=== PATIENT | female | born 1970 ===

== ENCOUNTER 2018-08-31 05:56 | Day surgery (SDC) | payer MEDICAID ==
[2018-08-31] MEDS ORDERED: KETAMINE HCL 100MG/1ML VIAL INJ ONE (05:57)
[2018-08-31] MEDS ORDERED: FENTANYL PF 100MCG/2ML VIAL IV ONE (05:57)
[2018-08-31] MEDS ORDERED: LIDOCAINE 2% MDV (20MG/ML) 20ML VIAL IV ONE (05:57)
[2018-08-31] MEDS ORDERED: PROPOFOL 10 MG/ML VIAL IV ONE (05:57)
--- NOTE | 2018-09-03 09:51 | Operative Note ---
DATE OF SURGERY: 08/31/2018 SURGEON: Leighton Adame MD OPERATION: 1. ESOPHAGOGASTRODUODENOSCOPY. 2. COLONOSCOPY. INDICATIONS: This is a 48-year-old female who has had history of gastroesophageal reflux disease and intermittent episodes of dysphagia who presented for both esophagogastroduodenoscopy and screening colonoscopy. She, however, has had occasional diarrhea. POSTOPERATIVE DIAGNOSES: 1. Moderate-size hiatal hernia. 2. Otherwise normal stomach and duodenum. 3. Normal colonic and terminal ileal mucosa with no neoplasm or ulcerative lesions. ANESTHESIA: Sedation is per Anesthesia. Pulse oximetry was monitored throughout the procedure to maintain O2 saturation of 90% or greater. Supplemental oxygen was administered via nasal cannula. Cardiac and vital signs were monitored throughout the duration of the procedure, and they were stable. The procedures of esophagogastroduodenoscopy and colonoscopy and risks and benefits of the procedures, including the risk of bleeding and perforation, among others, were explained to the patient who voiced understanding and agreed to have the procedures done. Physical examination was performed, and the patient was found stable for sedation. PROCEDURE: The patient was placed in the left lateral position. Sedation was initiated. A plastic bite block was inserted into the oral cavity. The Olympus [id number] gastroscope was introduced into the oral cavity and advanced to the proximal esophagus without difficulty. The esophageal mucosa was carefully examined upon introduction of the gastroscope. The proximal and mid and distal esophageal mucosa appeared normal. There was moderate-size hiatal hernia that was noted. The gastroscope was then advanced into the stomach, and surveillance of the stomach revealed normal gastric fundus, body, and antrum with no ulcers noted. The gastroscope was then advanced to the descending duodenum without difficulty. The duodenal bulb and descending duodenum appeared normal. The gastroscope was then withdrawn into the stomach and retroflexion was performed. The moderate-size hiatal hernia was noted. The gastroscope was then straightened and withdrawn while carefully examining the gastric and esophageal mucosa. No other lesions noted. Multiple mid esophageal biopsies were obtained to rule out eosinophilic esophagitis. A Faith dilator size 60-Kyr[place]z was then passed into the stomach with mild resistance. The Faith dilator was then withdrawn and the procedure was terminated. The patient tolerated procedure well without any immediate complications. The patient remained with stable vital signs and was repositioned for colonoscopy. A digital rectal exam was performed and showed some mild external hemorrhoids with no palpable rectal masses. An Olympus PCF-180AL colonoscope was then inserted into the rectum under direct visualization. It was advanced to the cecum without difficulty. The ileocecal valve and appendiceal orifice were identified and photographed. The colonic mucosa was carefully examined upon introduction of the colonoscope. There were no lesions noted. The ileocecal valve was intubated and terminal ileal mucosa was inspected for about 10 cm and it appeared normal. The colonoscope was then withdrawn while carefully examining the colonic mucosal surfaces. No lesions were noted. In the rectum, retroflexion was performed and grade 1 internal hemorrhoids were noted. Because of occasional diarrhea, random biopsies were obtained to rule out microscopic colitis. The colonoscope was then withdrawn and the procedure was terminated. The patient tolerated the procedure well without any immediate complications. The patient remained with stable vital signs and was transferred to the recovery room. RECOMMENDATIONS: 1. The patient should be on a high-fiber diet. 2. The patient is to have a repeat colonoscopy for screening in 10 years. Thank you for allowing me to participate in the care of your patient. CC: MD REESE Bashir
== END 2018-08-31 09:20 | disposition home or self-care (01) ==
LOC: HOP 05:56
PROVIDERS: ATTEND Internal Medicine Gastroenterology
DX: Z12.11 Encounter for screening for malignant neoplasm of colon (principal); Z87.19 Personal history of other diseases of the digestive system; K44.9 Diaphragmatic hernia without obstruction or gangrene
CPT/HCPCS: 81025; J3490